=== PATIENT | female | born 1965 | race Caucasian/White ===

== ENCOUNTER 2019-02-06 00:52 | Emergency (ER) | payer OTHER ==
[~2019-02-06] VITALS: Ht 157.5 cm; Wt 57.6 kg
[2019-02-06 00:52] VITALS: BP 128/67
--- NOTE | 2019-02-06 00:55 | NUR ---
PT BIBA TO BED 02.
--- NOTE | 2019-02-06 01:25 | NUR ---
53 YO F BIBA FROM LOCAL BAR FOR ETOH INTOXICATION. PER EMS, NO LOC. DAUGHTER IN LAW CALLED 911 BECAUSE SHE WAS WORRIED ABOUT BEHAVIOR. PT ARRIVES AWAKE, ALERT. AMBULATES FROM GURNEY TO BED WITH ASSISTANCE. ANSWERS QUESTIONS IN QUIET, ONE WORD ANSWERS. A/O X 4. PER EMS, PT VOMITED X 1 EN ROUTE TO ED. PT DENIES PAIN, N/V AT THIS TIME. -- SKIN PINK, WARM, DRY. BREATHING EVEN, UNLABORED. PT APPEARS INTOXICATED, TIRED. PT IS TEARFUL. COOPERATIVE. PMH-- HYPOTHYROID, HTN
--- NOTE | 2019-02-06 01:35 | NUR ---
DAUGHTER IN LAW AT BEDSIDE; ALSO INTOXICATED. DAUGHTER IN LAW STATES THAT PT HAS BEEN DRINKING MORE HEAVILY BECAUSE SHE IS GOING THROUGH A DIVORCE. DENIES THAT PT HAS THOUGHTS OF HARMING HERSELF. DAUGHTER IN LAW STATES SHE JUST WANTS TO TAKE HER HOME. STATES SHE WILL CALL [facility] AFTER PT SLEEPS FOR 30 MINS.
[2019-02-06 01:50] VITALS: BP 105/62
--- NOTE | 2019-02-06 01:50 | NUR ---
Patient discharged with v/s stable. Written and verbal after care instructions given and explained. Patient alert, oriented and verbalized understanding of instructions. All questions addressed prior to discharge. ID band removed. Patient advised to follow up with PMD. Rx of Zofran given. Patient educated on indication of medication including possible reaction and side effects. Opportunity to ask questions provided and answered.
--- NOTE | 2019-02-06 02:00 | NUR ---
DAUGHTER IN LAW ASKS IF IT IS OK TO SLEEP IN ROOM UNTIL AN UBER IS AVAILABLE TO PICK THEM UP.
--- NOTE | 2019-02-06 04:09 | NUR ---
PT AND DAUGHTER IN LAW AMBULATE TO LOBBY WITH STEADY GAIT. DAUGHTER IN LAW STATES SHE ORDERED AN UBER.
== END 2019-02-06 01:50 | disposition home or self-care (01) ==
LOC: MED 00:52
DX: F10.129 Alcohol abuse with intoxication, unspecified (principal); Y90.9 Presence of alcohol in blood, level not specified
CPT/HCPCS: 99283